=== PATIENT | male | born 1975 | race Caucasian/White ===

== ENCOUNTER 2024-07-19 07:46 | Outpatient (CLI) | payer OTHER | END 2024-07-19 07:49 | disposition home or self-care (01) | LOC: NUCLEAR 07:46 | PROVIDERS: ATTEND Specialist | DX: I82.429 Acute embolism and thrombosis of unspecified iliac vein (principal); I82.419 Acute embolism and thrombosis of unspecified femoral vein ==

== ENCOUNTER 2025-05-01 15:24 | Outpatient (CLI) | payer OTHER ==
[2025-05-01 15:56] LABS: BASO % 0.6 % (0.1-1.2); EOS # 0.12 (0.04-0.54); EOS % 1.1 % (0.7-7.0); LYMPH # 2.15 (1.18-3.74); LYMPH % 19.9 % (19.3-53.1); MEAN PLATELET VOLUME 8.70 fl (9.4-12.4); MONO # 1.06 (0.24-0.82); MONO % 9.8 % (4.7-12.5); NEUT # 7.37 (1.56-6.13); NEUT % 68.4 % (34.0-71.1); RED CELL DISTRIBUTION WIDTH 12.6 % (11.6-14.4)
[2025-05-01 16:13] LABS: ERYTHROCYTE SEDIMENTATION RATE 6 mm/hr (0-20)
[2025-05-01 16:16] LABS: COVID-19 AG NEGATIVE (NEGATIVE)
[2025-05-01 16:37] LABS: MYCOPLASMA PNEUMONIAE IGM NON REACTIVE (NO REACTIVE)
== END 2025-05-01 15:36 | disposition home or self-care (01) ==
LOC: LAB 15:24
PROVIDERS: ATTEND Specialist
DX: A49.3 Mycoplasma infection, unspecified site (principal); J11.1 Influenza due to unidentified influenza virus with other respiratory manifestations; U07.1 COVID-19; D64.9 Anemia, unspecified; J45.998 Other asthma; M35.3 Polymyalgia rheumatica

== ENCOUNTER 2025-05-01 15:54 | Outpatient (CLI) | payer OTHER | END 2025-05-01 15:56 | disposition home or self-care (01) | LOC: RAD 15:54 | PROVIDERS: ATTEND Specialist | DX: J45.998 Other asthma (principal); J01.90 Acute sinusitis, unspecified ==

== ENCOUNTER → 2025-05-26 10:40 | Outpatient (CLI) | payer OTHER | END | disposition home or self-care (01) | LOC: NUCLEAR 10:40 | PROVIDERS: ATTEND Specialist | DX: I82.409 Acute embolism and thrombosis of unspecified deep veins of unspecified lower extremity (principal) ==